=== PATIENT | male | born 1995 | race Caucasian/White ===

== ENCOUNTER 2025-04-20 13:31 | Emergency (ER) | payer OTHER ==
[~2025-04-20] VITALS: Ht 172.7 cm; Wt 115.7 kg
[~2025-04-20 13:31] MED LIST: AMOX250CH PO; CEPH500 PO; CRUTCH4 USE; CYCL10 PO; HYDR1TAB94 PO; IBUP600 PO; IBUP800 PO; Keflex500 MG PO; NAPR500 PO; Norco 10-325 T1 EACH PO; Norco 5-325 Ta1 EACH PO; Percocet 5-3251 EACH PO; SULTRIDS PO; Silvadene20 GM TOP; Silver Sulfadi400 GM TP
[2025-04-20 17:37] VITALS: BP 135/84
== END 2025-04-20 17:38 | disposition home or self-care (01) ==
LOC: ER 13:31
DX: S46.211A Strain of muscle, fascia and tendon of other parts of biceps, right arm, initial encounter (principal); F17.200 Nicotine dependence, unspecified, uncomplicated; Z91.041 Radiographic dye allergy status; Z59.89 Other problems related to housing and economic circumstances; X58.XXXA Exposure to other specified factors, initial encounter; Y93.72 Activity, wrestling
CPT/HCPCS: 76882; 99283-25